=== PATIENT | male | born 1975 | race American Indian/Alaskan Native ===

== ENCOUNTER 2019-07-01 13:34 | Emergency (ER) | payer OTHER ==
[2019-07-01 14:22] VITALS: BP 113/75
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
--- NOTE | 2019-07-01 15:54 | XRay Report ---
HISTORY:pain COMPARISON: None. TECHNIQUE: AP lateral and Y views were obtained FINDINGS: Bones: No fracture or dislocation. Joint spaces: Maintained. Soft tissues: No significant abnormality. Additional findings: None. IMPRESSION: 1. No significant abnormality. Signer Name: Anthony Meier MD Signed: 07/01/2019 3:49 PM Workstation Name: [id number]
[2019-07-01] MEDS ORDERED: KETOROLAC 30 MG/1 ML INJ IM ONE (15:55)
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
== END 2019-07-01 16:17 | disposition home or self-care (01) ==
LOC: ED 13:34
DX: M25.511 Pain in right shoulder (principal); F17.200 Nicotine dependence, unspecified, uncomplicated; F12.10 Cannabis abuse, uncomplicated
CPT/HCPCS: 73030; 96372; 99283; J1885